=== PATIENT | male | born 1950 | race Caucasian/White ===

== ENCOUNTER → 2016-09-08 | Outpatient (CLI) | payer BC ==
[2016-09-08 08:59] LABS: ALT 61 U/L (21-72); AST 31 U/L (17-59); Alkaline Phosphatase 70 U/L (38-126); Anion Gap 11 mmol/L; Bilirubin, Delta 0.2 mg/dL (0.0-0.2); Blood Urea Nitrogen 13 mg/dL (9-20); Carbon Dioxide 24 mmol/L (22-30); Chloride 106 mmol/L (98-107); Cholesterol 97 mg/dL (<200); HDL Cholesterol 32 mg/dL (40-60); Non-African American GFR(MDRD) >60 (>60 ml/min/1.73 sqM); Potassium 4.7 mmol/L (3.5-5.1); Sodium 141 mmol/L (137-145); Total Bilirubin 0.6 mg/dL (0.2-1.3); Total Protein 7.2 g/dL (6.3-8.2); Triglycerides 81 mg/dL (<150)
[2016-09-08 11:30] LABS: Hemoglobin A1C 7.2 % (4.2-6.1)
== END | disposition home or self-care (01) ==
LOC: LABWHC1 07:42
PROVIDERS: ATTEND Internal Medicine
DX: E78.5 Hyperlipidemia, unspecified (principal); I10 Essential (primary) hypertension; E11.9 Type 2 diabetes mellitus without complications
CPT/HCPCS: 36415; 80051; 80061; 80076; 82565; 83036; 84520

== ENCOUNTER → 2017-06-15 | Outpatient (CLI) | payer BC ==
[2017-06-15 11:02] LABS: ALT 63 U/L (21-72); AST 31 U/L (17-59); Alkaline Phosphatase 68 U/L (38-126); Anion Gap 8 mmol/L; Blood Urea Nitrogen 17 mg/dL (9-20); Calcium 9.2 mg/dL (8.4-10.2); Carbon Dioxide 23 mmol/L (22-30); Chloride 106 mmol/L (98-107); Cholesterol 100 mg/dL (<200); Glucose 166 mg/dL (74-99); HDL Cholesterol 29 mg/dL (40-60); Non-African American GFR(MDRD) >60 (>60 ml/min/1.73 sqM); Potassium 4.6 mmol/L (3.5-5.1); Sodium 137 mmol/L (137-145); Total Bilirubin 0.6 mg/dL (0.2-1.3); Total Protein 6.8 g/dL (6.3-8.2)
[2017-06-15 11:28] LABS: Prostate Specific Antigen 1.02 ng/mL (0.00-4.00)
== END | disposition home or self-care (01) ==
LOC: LABWHC1 07:30
PROVIDERS: ATTEND Internal Medicine
DX: E11.9 Type 2 diabetes mellitus without complications (principal); I10 Essential (primary) hypertension; N40.1 Benign prostatic hyperplasia with lower urinary tract symptoms; E78.5 Hyperlipidemia, unspecified
CPT/HCPCS: 36415; 80053; 80061; 83036; 84153

== ENCOUNTER → 2018-02-17 | Day surgery (SDC) | payer BC ==
[2018-02-11 15:12] VITALS: BMI 38.0
[~2018-02-17] MED LIST: DEXAMETHASONE SOD PHOSPHATE 10 MG/ML 1 ML VIAL IV ONE; GLYCOPYRROLATE 0.2 MG/ML 2 ML VIAL ONE; HEPARIN SODIUM,PORCINE 5,000 UNIT/ML 1 ML VIAL SQ ONE; HYDROcodone/APAP 5-325MG 1 EACH TAB PO ONE; LACTATED RINGERS 1,000 ML IV ONE; LACTATED RINGERS 1,000 ML IV SCH; LIDOCAINE 1% 20 ML VIAL (10MG/ML) FOR IV START INTRADERMA PRN; LIDOCAINE 1% INJ 10MG/ML (20 ML MDV) ONE; MIDAZOLAM 2 MG/2 ML VIAL IV PRN; NALOXONE 0.4 MG/ML 1 ML VIAL IV PRN; NEOSTIGMINE 1 MG/ML 10 ML VIAL ONE; ONDANSETRON 4 MG/2 ML VIAL IVP ONE; PROPOFOL 10 MG/ML 20 ML VIAL IV ONE; ROCURONIUM BROMIDE 10 MG/ML 10 ML VIAL IV ONE; ROPIVACAINE 5 MG/ML 30 ML VIAL MISCELLANE ONE; SCOPOLAMINE 1.5MG/72HR PATCH TRANSDERM ONE; SUCCINYLCHOLINE CHLORIDE 100 MG/5 ML SYR IV ONE; TAMSULOSIN 0.4 MG CAP.ER.24H PO ONE; TAMSULOSIN 0.4 MG CAP.ER.24H PO STA; fentaNYL (PF) 50 MCG/ML 2 ML AMP ONE; traMADol 50 MG TAB PO PRN
[2018-02-17 08:55] LABS: Glucose,Whole Blood 133 mg/dL (75-99)
--- NOTE | 2018-02-17 09:40 | P.ONQ ---
Anesthesiology Proc Note - PNB - Peripheral Nerve Block Performed Bilateral Transversus Abdominis Single Time Out Performed: Yes Procedure Start Time: :14 Procedure Stop Time: :24 Indication: Acute Post-Operative Pain, Requested by physician Sedation Type: Sedate with meaningful contact maintained Preparation: Sterile Prep Position: Supine Needle Size: 50mm (2") Needle Gauge: 21 Technique: Ultrasound Injectate: 0.5% Ropivacaine (see comment for volume) (ropi .5% 30cc) Blood Aspirated: No Pain Paresthesia on Injection Noted: No Resistance on Injection: Normal Events: Uneventful and Well Tolerated
--- NOTE | 2018-02-17 10:44 | P.OP ---
Date of Procedure: 02/17/18 Procedure(s) Performed: PREOPERATIVE DIAGNOSIS: Incarcerated umbilical hernia POSTOPERATIVE DIAGNOSIS: Same PROCEDURE: Umbilical herniorrhaphy with mesh SURGEON: Gordy EBL: Minimal ANESTHESIA: General COMPLICATIONS: None OPERATIVE PROCEDURE: The patient was placed in the operating table in the supine position. A periumbilical incision was made using the scalpel. The subcutaneous tissues were dissected bluntly. The hernia sac was identified. The omentum present within the hernia sac was reduced. The umbilical attachments to the fascia were divided using electrocautery. The hernia sac was excised. The hernia sac was sent to pathology. The pre-peroneal space was dissected circumferentially to make space for our mesh. The 6.4 cm ventral X mesh was placed beneath the fascia and sutured in place using trans-fascial 0 Ethibond sutures. The defect was closed using interrupted [id number] 0 Ethibond sutures. The subcutaneous tissues were reapproximated using inverted 3 -0 Vicryl sutures. The umbilicus was tacked back down to the fascia using a 3- 0 Vicryl suture. The skin was closed using 4-0 Monocryl sutures. Steri-Strips and sterile dressings were then applied. DISPOSITION: Stable to recovery room
[2018-02-17 10:48] VITALS: TEMP 97
[2018-02-17 10:59] LABS: Glucose,Whole Blood 136 mg/dL (75-99)
[2018-02-17] MEDS: HYDROmorphone 0.5 MG/0.5 ML SYRINGE IVP PRN ×2 (11:06→11:20)
[2018-02-17 12:52] VITALS: RESP 18
[2018-02-17 15:33] VITALS: BP 121/76; PULSE 66
== END ==
LOC: OR 08:25
PROVIDERS: ATTEND Surgery
DX: K42.0 Umbilical hernia with obstruction, without gangrene (principal); I10 Essential (primary) hypertension; E11.9 Type 2 diabetes mellitus without complications; Z79.2 Long term (current) use of antibiotics; Z79.84 Long term (current) use of oral hypoglycemic drugs; Z79.899 Other long term (current) drug therapy; Z79.1 Long term (current) use of non-steroidal anti-inflammatories (NSAID); Z79.891 Long term (current) use of opiate analgesic
CPT/HCPCS: 88302; 49587; 64488; C1781; J2250; J1644; J1100; J2710; J0690; J2405; J2001; J3010; J2795; J0330; J2704; J1170

== ENCOUNTER → 2018-05-31 | Outpatient (CLI) | payer BC ==
[2018-05-31 11:27] LABS: Albumin 4.3 g/dL (3.80-4.90); Albumin/Globulin Ratio 1.72 (1.20-2.10); Anion Gap 8.7 mmol/L (4.00-12.00); Bilirubin, Conjugated 0.3 mg/dL (0.20-0.40); Bilirubin,Unconjugated 0.3 mg/dL; Carbon Dioxide 25.3 mmol/L (21.6-31.8); Globulin 2.5 g/dL (2.1-3.7); Potassium 4.9 mmol/L (3.5-5.5); Total Bilirubin 0.6 mg/dL (0.3-1.2); Total Protein 6.8 g/dL (6.2-8.2)
[2018-05-31 14:00] LABS: Hemoglobin A1C 7.6 % (4.0-6.0)
[2018-06-02 08:55] LABS: Hepatitis A Antibody IgM Non-Reactive (Non-Reactive); Hepatitis B Core IgM Non-Reactive (Non-Reactive)
== END | disposition home or self-care (01) ==
LOC: LABWHC1 06:48
PROVIDERS: ATTEND Internal Medicine
DX: E11.9 Type 2 diabetes mellitus without complications (principal); I10 Essential (primary) hypertension; E78.5 Hyperlipidemia, unspecified; R94.5 Abnormal results of liver function studies; Z12.5 Encounter for screening for malignant neoplasm of prostate
CPT/HCPCS: 36415; 80051; 80061; 80074; 80076; 82565; 82947; 83036; 84153; 84520

== ENCOUNTER → 2019-07-05 | Outpatient (CLI) | payer MEDICARE, OTHER ==
[2019-07-05 13:15] LABS: Hemoglobin A1C 6.5 % (4.0-6.0)
[2019-07-05 14:46] LABS: African American GFR (CKD) 89.2 (60.0-200.0); Albumin 4.1 g/dL (3.80-4.90); Albumin/Globulin Ratio 1.58 (1.60-3.17); Calcium 9.1 mg/dL (8.7-10.3); Chol/HDL Ratio 3.04; Globulin 2.6 g/dL (1.6-3.3); Potassium 4.4 mmol/L (3.5-5.5); Total Bilirubin 0.5 mg/dL (0.3-1.2); Total Protein 6.7 g/dL (6.2-8.2)
== END | disposition home or self-care (01) ==
LOC: LABWHC1 07:22
PROVIDERS: ATTEND Internal Medicine
DX: E78.5 Hyperlipidemia, unspecified (principal); E11.9 Type 2 diabetes mellitus without complications; I10 Essential (primary) hypertension; N41.0 Acute prostatitis
CPT/HCPCS: 36415; 80053; 80061; 83036

== ENCOUNTER → 2019-07-22 | Outpatient (CLI) | payer MEDICARE, OTHER ==
--- NOTE | 2019-07-22 09:20 | US ---
EXAMINATION TYPE: US liver DATE OF EXAM: 07/22/2019 COMPARISON: NONE CLINICAL HISTORY: 69-year-old male R94.5 Elevated LFT's. Abnormal labs. TECHNIQUE: Multiple sonographic images of the right upper quadrant are obtained. FINDINGS: EXAM MEASUREMENTS: Liver Length: 17.7 cm- estimated Gallbladder Wall: 0.1 cm Right Kidney: 10.8 x 4.7 x 6.2 cm PLUCK TRIMMER NOTES: Limited due to patient body habitus Pancreas: Body and tail obscured by overlying bowel gas Liver: Very echogenic and attenuating liver. This secondarily limits assessment for focal lesion. Up per limits of normal in size- estimated due to limited penetration of posterior aspect of liver. Gallbladder: wnl Evidence for sonographic Laws's sign: neg CBD: Obscured by overlying bowel gas. Unable to adequately assess. Right Kidney: No hydronephrosis. IMPRESSION: 1. Borderline hepatomegaly (17.7 cm) with severe hepatic steatosis. This secondarily limits assessmen t for focal lesion. 2. The bile duct is obscured and not adequately assessed. 2. No cholelithiasis or acute cholecystitis.
== END | disposition home or self-care (01) ==
LOC: RADUSWWP 07:25
PROVIDERS: ATTEND Internal Medicine
DX: K76.0 Fatty (change of) liver, not elsewhere classified (principal)
CPT/HCPCS: 76705

== ENCOUNTER → 2020-03-09 | Outpatient (CLI) | payer MEDICARE, OTHER ==
[2020-03-09 17:33] LABS: African American GFR (CKD) 79.5 (60.0-200.0); Albumin 4.3 g/dL (3.80-4.90); Albumin/Globulin Ratio 1.39 (1.60-3.17); Anion Gap 10.2 mmol/L (4.00-12.00); BUN/Creat Ratio 15.45 Ratio (12.00-20.00); Calcium 9.5 mg/dL (8.7-10.3); Carbon Dioxide 24.8 mmol/L (21.6-31.8); Chol/HDL Ratio 3.66; Globulin 3.1 g/dL (1.6-3.3); LDL Cholesterol,Calculated 51.6 mg/dL (0.0-131.0); Non-African American GFR(CKD) 68.6 (60.0-200.0); Potassium 4.5 mmol/L (3.5-5.5); Total Bilirubin 0.6 mg/dL (0.3-1.2); Total Protein 7.4 g/dL (6.2-8.2); VLDL Calculation 25.4 mg/dL (5.00-40.00)
[2020-03-09 18:25] LABS: Hemoglobin A1C 7.1 % (4.0-6.0)
== END | disposition home or self-care (01) ==
LOC: LABWHC1 07:32
PROVIDERS: ATTEND Internal Medicine
DX: I10 Essential (primary) hypertension (principal); N40.0 Benign prostatic hyperplasia without lower urinary tract symptoms; E11.9 Type 2 diabetes mellitus without complications; E78.5 Hyperlipidemia, unspecified
CPT/HCPCS: 36415; 80053; 80061; 83036

== ENCOUNTER → 2020-12-25 | Outpatient (CLI) | payer MEDICARE, OTHER ==
[2020-12-25 12:37] LABS: African American GFR (CKD) 71.1 (60.0-200.0); Albumin 4.1 g/dL (3.80-4.90); Albumin/Globulin Ratio 1.37 (1.60-3.17); Anion Gap 9.2 mmol/L (4.00-12.00); Bilirubin, Conjugated 0.2 mg/dL (0.20-0.40); Bilirubin,Unconjugated 0.3 mg/dL; Carbon Dioxide 24.8 mmol/L (21.6-31.8); Chol/HDL Ratio 3.33; LDL Cholesterol,Calculated 40.6 mg/dL (0.0-131.0); Non-African American GFR(CKD) 61.3 (60.0-200.0); Potassium 4.6 mmol/L (3.5-5.5); Total Bilirubin 0.5 mg/dL (0.2-1.2); Total Protein 7.1 g/dL (6.2-8.2); VLDL Calculation 22.4 mg/dL (5.00-40.00)
== END | disposition home or self-care (01) ==
LOC: LABWHC1 07:20
PROVIDERS: ATTEND Internal Medicine
DX: E78.5 Hyperlipidemia, unspecified (principal); E11.9 Type 2 diabetes mellitus without complications; I10 Essential (primary) hypertension
CPT/HCPCS: 36415; 80051; 80061; 80076; 82565; 83036; 84443; 84520

== ENCOUNTER 2022-01-03 14:13 | Emergency (ER) | payer MEDICARE, OTHER ==
[2022-01-03 14:18] VITALS: TEMP 97.4
--- NOTE | 2022-01-03 15:21 | ED ---
Recheck HPI - General Source: patient Mode of arrival: ambulatory Limitations: no limitations <Karan Sweet - Last Filed: 01/04/22 00:14> <Skinny Syed - Last Filed: 01/07/22 00:32> - General Chief Complaint: Recheck/Abnormal Lab/Rx Stated Complaint: Abnormal Labs Time Seen by Provider: 01/03/22 15:01 - History of Present Illness Initial Comments: Patient is a 8-year-old male presenting with chief complaint of nausea and vomiting. History of diabetes and hypertension. Patient has had these symptoms for approximately one month, he was seen by Dr. Israel 2 weeks ago, who noted elevated liver enzymes. Patient states that he was not able to get an outpatient ultrasound and computed tomography scan until the end of the month, and was told to report to the ER. Patient states he has lost 28 pounds in one month. Patient states he has not been eating and drinking very much due to his symptoms. He denies any abdominal pain. Surgical history includes umbilical hernia repair. Patient has been having regular bowel movements, without blood. Denies any hematemesis. Denies any chest pain, shortness of breath, fever, chills, dysuria, hematuria, urgency, frequency, diarrhea, cough. (Karan Sweet) - Related Data Home Medications Medication Instructions Recorded Confirmed Silodosin [Rapaflo] 8 mg PO HS 02/11/18 01/03/22 Simvastatin [Zocor] 10 mg PO HS 02/11/18 01/03/22 Allergies Allergy/AdvReac Type Severity Reaction Status Date / Time No Known Allergies Allergy Verified 01/03/22 15:15 Review of Systems ROS Other: All systems not noted in ROS Statement are negative. <Karan Sweet - Last Filed: 01/04/22 00:14> ROS Other: All systems not noted in ROS Statement are negative. <Skinny Syed - Last Filed: 01/07/22 00:32> ROS Statement: Those systems with pertinent positive or pertinent negative responses have been documented in the HPI. Past Medical History Past Medical History: Diabetes Mellitus, Hypertension, Prostate Disorder Additional Past Medical History / Comment(s): BPH, NERVE PAIN IN LOWER BACK., HX OF RETINA DETACHMENT ELLEN. History of Any Multi-Drug Resistant Organisms: None Reported Past Surgical History: Heart Catheterization Additional Past Surgical History / Comment(s): RIGHT RETINA BUCKLE(2008), LEFT EYE SURGERY X4. HEART CATH (2010 @ [facility] Past Anesthesia/Blood Transfusion Reactions: No Reported Reaction Past Psychological History: No Psychological Hx Reported Smoking Status: Former smoker Past Alcohol Use History: None Reported Past Drug Use History: None Reported - Past Family History Father Family Medical History: Cancer Additional Family Medical History / Comment(s): BLADDER CANCER Brother(s) Family Medical History: Cancer Additional Family Medical History / Comment(s): THROAT CANCER <Karan Sweet - Last Filed: 01/04/22 00:14> General Exam Limitations: no limitations General appearance: alert, in no apparent distress Head exam: Present: atraumatic, normocephalic, normal inspection Eye exam: Present: EOMI, scleral icterus Neck exam: Present: normal inspection Respiratory exam: Present: normal lung sounds bilaterally. Absent: respiratory distress, wheezes, rales, rhonchi, stridor Cardiovascular Exam: Present: normal rhythm, tachycardia, normal heart sounds. Absent: systolic murmur, diastolic murmur, rubs, gallop, clicks GI/Abdominal exam: Present: soft, distended, normal bowel sounds. Absent: tenderness, guarding, rebound, rigid Extremities exam: Present: normal inspection. Absent: pedal edema Neurological exam: Present: alert, oriented X3, CN II-XII intact Psychiatric exam: Present: normal affect, normal mood Skin exam: Present: warm, dry, intact, other (Jaundiced). Absent: rash <Karan Sweet - Last Filed: 01/04/22 00:14> Course Vital Signs 01/03/22 01/03/22 14:15 23:24 Temperature 97.4 F L Pulse Rate 102 H 97 Respiratory 19 16 Rate Blood Pressure 122/81 137/79 O2 Sat by Pulse 94 L 95 Oximetry Medical Decision Making - Lab Data Result diagrams: 01/03/22 14:40 01/03/22 14:40 <Karan Sweet - Last Filed: 01/04/22 00:14> - Lab Data Result diagrams: 01/03/22 14:40 01/03/22 14:40 <Skinny Syed - Last Filed: 01/07/22 00:32> - Medical Decision Making Patient is a 71-year-old male presenting with chief complaint of nausea and vomiting. Patient was prompted by his PCP Dr. Israel to report to the ER for further testing as in the office 2 weeks ago his LFTs were elevated. On examination abdomen is distended, nontender. Patient does not have a white count. Hypoglycemic with glucose of 38, he was given D50 and juice, recheck shows glucose of 91. Lactic acid of 11, patient states that at home he has not been eating or drinking much due to his nausea and vomiting. Total bilirubin of 8.0, bilirubin fractions show dominant conjugated bilirubin. AST is 232. ALT is 128. Alkaline phosphatase is 249. CT of the abdomen and pelvis shows an enlarged liver with a nodular contour to suggest cirrhosis, hepatic steatosis, cholelithiasis, and enlargement of the prostate and spleen. Ultrasound shows many masses seen throughout the liver concerning for neoplastic process that are not definitively seen on noncontrast CT. Given the patient's 28 lb, weight loss within the last month, this is further concerning for malignancy. Also remarkable for cholelithiasis with biliary sludge. Patient likely has some obstructive process, which may be malignant in nature, and requires GI services. I explained to the patient that we do not have the means to care for him here, as we do not currently have GI coverage. I explained to the patient his findings and the seriousness of his condition, which requires immediate further workup and treatment plan, and I am recommending transfer to another ER tonight. I explained to him that any delay in care could result in serious injury or . Patient stated that while he understands the situation, he is refusing to be transferred today as he needs to make arrangements for his 's care. I spoke with the patient again with my attending Dr. Syed, urging him to be transferred to another facility and c onfirming that the patient understood that not seeking additional care at this time may result in . Patient is of sound mind and body and states that he will not accept transfer at this time. I provided patient with a copy of his labs and radiology readings, as well as a disc of his imaging obtained today. I instructed him to report to an ER with GI services, such as [facility], tomorrow morning with the materials provided today. He was informed that if it was not possible for him to report to another ER, he may report here and will be transferred. Patient conveyed verbal understanding and agreed to the plan. I discussed this case with my attending Dr. Syed. (Karan Sweet) I spoke with the mid-level provider regarding this patient. The plan was for transfer for gastroenterology consultation at another facility, specifically [facility]. Patient appears to have cirrhosis, numbness concerned for possible choledocholithiasis dehydration. There are multiple hepatic masses seen on ultrasound concerned for possible neoplastic process. There is concerning for undiagnosed cancer and the patient. Patient's laboratory studies were initially remarkable for hypoglycemia which recovered following sugar administration. Lactic acid is severely elevated to 11.0 patient received a dose of Zosyn. Patient shows obstructive pathology in the hepatobiliary tree with alk phos of 249 and elevated LFTs. Bilirubin is elevated to 8.0. Patient has an OBI. Nursing staff as well as the mid-level provider spoke with the patient regarding transfer but he refuses. He states he cannot be admitted to the hospital or transferred this evening as he is no one to care for his . States there is no one he can call. States potentially can find someone to take care of her and help with her care tomorrow. States his symptoms have been ongoing for one month without any change. He believes he can wait. I was notified at this time and I spoke patient personally. Patient's vital signs remained stable. Repeat sugar following multiple hours was in the 80s which is typical for the patient. Patient is of sound mind and body. He would like to follow up tomorrow.The patient was apprised of the potential risks of leaving the hospital AGAINST MEDICAL ADVICE, including serious complications, permanent disability, and . At the time of my interview the patient, the patient was alert, oriented, and capable. Patient signed AMA form, which was witnessed and signed by nursing staff, and placed in patient's chart. I urged the patient to return to the hospital as soon as possible to complete evaluation and treatment. The patient repeated the potential diagnosis as well as concerned for potential to me. He expresses understanding and is willing to sign the AMA forms. We will provide the patient with a disc of his CT imaging as well as copies of his laboratory studies. I once again urged the patient to be transferred, which he refuses. I urged the patient to follow up as soon as possible, and he can return here and be subsequently transfered if that is easiest for him. He expressed understanding and was in agreement with the plan. (Skinny Syed) - Lab Data Lab Results 01/03/22 01/03/22 01/03/22 Range/Units 14:40 14:40 15:07 WBC 10.1 (3.8-10.6) k/uL RBC 4.63 (4.30-5.90) m/uL Hgb 14.2 (13.0-17.5) gm/dL Hct 44.3 (39.0-53.0) % MCV 95.7 (80.0-100.0) fL MCH 30.7 (25.0-35.0) pg MCHC 32.1 (31.0-37.0) g/dL RDW 15.1 (11.5-15.5) % Plt Count 248 (150-450) k/uL MPV 8.3 PT 14.4 H (9.0-12.0) sec INR 1.4 H (<1.2) APTT 26.7 (22.0-30.0) sec Sodium 136 L (137-145) mmol/L Potassium 4.9 (3.5-5.1) mmol/L Chloride 98 (98-107) mmol/L Carbon Dioxide 17 L (22-30) mmol/L Anion Gap 21 mmol/L BUN 23 H (9-20) mg/dL Creatinine 1.61 H (0.66-1.25) mg/dL Est GFR (CKD-EPI)AfAm 50 (>60 ml/min/1.73 sqM) Est GFR (CKD-EPI)NonAf 43 (>60 ml/min/1.73 sqM) Glucose 38 L* (74-99) mg/dL POC Glucose (mg/dL) (70-110) mg/dL POC Glu Roll Scale Man ID Lactic Ac Sepsis Rflx Plasma Lactic Acid Shan (0.7-2.0) mmol/L Calcium 10.5 H (8.4-10.2) mg/dL Total Bilirubin 8.0 H (0.2-1.3) mg/dL Conjugated Bilirubin (0.0-0.3) mg/dL Unconjugated Bilirubin (0.0-1.1) mg/dL Delta Bilirubin (0.0-0.2) mg/dL AST 232 H (17-59) U/L ALT 128 H (4-49) U/L Alkaline Phosphatase 249 H (38-126) U/L Troponin I (0.000-0.034) ng/mL Total Protein 7.2 (6.3-8.2) g/dL Albumin 3.4 L (3.5-5.0) g/dL Amylase 78 (30-110) U/L Lipase 195 (23-300) U/L Hepatitis A IgM Ab (Nonreactive) Hep Bs Antigen (Nonreactive) Hep B Core IgM Ab (Nonreactive) Hep C IgG Ab (Nonreactive) 01/03/22 01/03/22 01/03/22 Range/Units 15:07 15:07 16:29 WBC (3.8-10.6) k/uL RBC (4.30-5.90) m/uL Hgb (13.0-17.5) gm/dL Hct (39.0-53.0) % MCV (80.0-100.0) fL MCH (25.0-35.0) pg MCHC (31.0-37.0) g/dL RDW (11.5-15.5) % Plt Count (150-450) k/uL MPV PT (9.0-12.0) sec INR (<1.2) APTT (22.0-30.0) sec Sodium (137-145) mmol/L Potassium (3.5-5.1) mmol/L Chloride (98-107) mmol/L Carbon Dioxide (22-30) mmol/L Anion Gap mmol/L BUN (9-20) mg/dL Creatinine (0.66-1.25) mg/dL Est GFR (CKD-EPI)AfAm (>60 ml/min/1.73 sqM) Est GFR (CKD-EPI)NonAf (>60 ml/min/1.73 sqM) Glucose (74-99) mg/dL POC Glucose (mg/dL) (70-110) mg/dL POC Glu Roll Scale Man ID Lactic Ac Sepsis Rflx Y Plasma Lactic Acid Shan 11.0 H* (0.7-2.0) mmol/L Calcium (8.4-10.2) mg/dL Total Bilirubin (0.2-1.3) mg/dL Conjugated Bilirubin (0.0-0.3) mg/dL Unconjugated Bilirubin (0.0-1.1) mg/dL Delta Bilirubin (0.0-0.2) mg/dL AST (17-59) U/L ALT (4-49) U/L Alkaline Phosphatase (38-126) U/L Troponin I <0.012 (0.000-0.034) ng/mL Total Protein (6.3-8.2) g/dL Albumin (3.5-5.0) g/dL Amylase (30-110) U/L Lipase (23-300) U/L Hepatitis A IgM Ab (Nonreactive) Hep Bs Antigen (Nonreactive) Hep B Core IgM Ab (Nonreactive) Hep C IgG Ab (Nonreactive) 01/03/22 01/03/22 01/03/22 Range/Units 16:31 17:03 17:30 WBC (3.8-10.6) k/uL RBC (4.30-5.90) m/uL Hgb (13.0-17.5) gm/dL Hct (39.0-53.0) % MCV (80.0-100.0) fL MCH (25.0-35.0) pg MCHC (31.0-37.0) g/dL RDW (11.5-15.5) % Plt Count (150-450) k/uL MPV PT (9.0-12.0) sec INR (<1.2) APTT (22.0-30.0) sec Sodium (137-145) mmol/L Potassium (3.5-5.1) mmol/L Chloride (98-107) mmol/L Carbon Dioxide (22-30) mmol/L Anion Gap mmol/L BUN (9-20) mg/dL Creatinine (0.66-1.25) mg/dL Est GFR (CKD-EPI)AfAm (>60 ml/min/1.73 sqM) Est GFR (CKD-EPI)NonAf (>60 ml/min/1.73 sqM) Glucose (74-99) mg/dL POC Glucose (mg/dL) 91 (70-110) mg/dL POC Glu Roll Scale Man ID Shanon Manzo Lactic Ac Sepsis Rflx Plasma Lactic Acid Shan (0.7-2.0) mmol/L Calcium (8.4-10.2) mg/dL Total Bilirubin 7.5 H (0.2-1.3) mg/dL Conjugated Bilirubin 2.8 H (0.0-0.3) mg/dL Unconjugated Bilirubin 2.1 H (0.0-1.1) mg/dL Delta Bilirubin 2.6 H (0.0-0.2) mg/dL AST (17-59) U/L ALT (4-49) U/L Alkaline Phosphatase (38-126) U/L Troponin I (0.000-0.034) ng/mL Total Protein (6.3-8.2) g/dL Albumin (3.5-5.0) g/dL Amylase (30-110) U/L Lipase (23-300) U/L Hepatitis A IgM Ab Nonreactive (Nonreactive) Hep Bs Antigen Nonreactive (Nonreactive) Hep B Core IgM Ab Nonreactive (Nonreactive) Hep C IgG Ab Nonreactive (Nonreactive) 01/03/22 Range/Units 22:00 WBC (3.8-10.6) k/uL RBC (4.30-5.90) m/uL Hgb (13.0-17.5) gm/dL Hct (39.0-53.0) % MCV (80.0-100.0) fL MCH (25.0-35.0) pg MCHC (31.0-37.0) g/dL RDW (11.5-15.5) % Plt Count (150-450) k/uL MPV PT (9.0-12.0) sec INR (<1.2) APTT (22.0-30.0) sec Sodium (137-145) mmol/L Potassium (3.5-5.1) mmol/L Chloride (98-107) mmol/L Carbon Dioxide (22-30) mmol/L Anion Gap mmol/L BUN (9-20) mg/dL Creatinine (0.66-1.25) mg/dL Est GFR (CKD-EPI)AfAm (>60 ml/min/1.73 sqM) Est GFR (CKD-EPI)NonAf (>60 ml/min/1.73 sqM) Glucose (74-99) mg/dL POC Glucose (mg/dL) 83 (70-110) mg/dL POC Glu Roll Scale Man ID Whiting, Roland Lactic Ac Sepsis Rflx Plasma Lactic Acid Shan (0.7-2.0) mmol/L Calcium (8.4-10.2) mg/dL Total Bilirubin (0.2-1.3) mg/dL Conjugated Bilirubin (0.0-0.3) mg/dL Unconjugated Bilirubin (0.0-1.1) mg/dL Delta Bilirubin (0.0-0.2) mg/dL AST (17-59) U/L ALT (4-49) U/L Alkaline Phosphatase (38-126) U/L Troponin I (0.000-0.034) ng/mL Total Protein (6.3-8.2) g/dL Albumin (3.5-5.0) g/dL Amylase (30-110) U/L Lipase (23-300) U/L Hepatitis A IgM Ab (Nonreactive) Hep Bs Antigen (Nonreactive) Hep B Core IgM Ab (Nonreactive) Hep C IgG Ab (Nonreactive) Disposition Is patient prescribed a controlled substance at d/c from ED?: No Time of Disposition: 22:12 <Karan Sweet - Last Filed: 01/04/22 00:14> <Skinny Syed - Last Filed: 01/07/22 00:32> Clinical Impression: Left against medical advice, Cirrhosis, Liver masses, Lactic acidosis, OBI (acute kidney injury), Dehydration, Hyperbilirubinemia Disposition: Left Against Medical Advice Condition: Poor Additional Instructions: You have chosen to leave AGAINST MEDICAL ADVICE, and you understand that this may result in or serious injury at any point. You need to follow up as soon as possible with a hospital with a GI doctor, we were going to send you to [facility]. Bring your printed off lab work and imaging studies with you to the ER. If you are unable to follow up at a different hospital, you may return here and we will transfer you. Today your labs and imaging are suggesting a critical condition of the liver and gallbladder, there are masses and scarring seen to the liver, and you may have a critical infection of the gallbladder, all of which may result in . It is of utmost importance that you follow up and receive further care and studies regarding your condition. Referrals: Jackson Israel MD [Primary Care Provider] - 1-2 days
[2022-01-03 16:05] LABS: HCT 44.3 % (39.0-53.0); HGB 14.2 gm/dL (13.0-17.5); MCH 30.7 pg (25.0-35.0); MCHC 32.1 g/dL (31.0-37.0); MCV 95.7 fL (80.0-100.0); Mean Platelet Volume 8.3; Platelet Count 248 k/uL (150-450); RBC 4.63 m/uL (4.30-5.90); RDW 15.1 % (11.5-15.5); WBC 10.1 k/uL (3.8-10.6)
[2022-01-03 16:14] LABS: INR 1.4 (<1.2); Partial Thromboplastin Time 26.7 sec (22.0-30.0); Prothrombin Time 14.4 sec (9.0-12.0)
[2022-01-03 16:18] LABS: Albumin 3.4 g/dL (3.5-5.0); Calcium 10.5 mg/dL (8.4-10.2); Potassium 4.9 mmol/L (3.5-5.1); Total Protein 7.2 g/dL (6.3-8.2)
[2022-01-03] MEDS ORDERED: SODIUM CHLORIDE 0.9% 2,000 ML IV ONE (16:30)
[2022-01-03] MEDS ORDERED: DEXTROSE 50% SYRINGE 50 ML IVP STA (16:34)
[2022-01-03 17:25] LABS: Bilirubin, Conjugated 2.8 mg/dL (0.0-0.3); Bilirubin, Delta 2.6 mg/dL (0.0-0.2); Bilirubin,Unconjugated 2.1 mg/dL (0.0-1.1); Total Bilirubin 7.5 mg/dL (0.2-1.3)
[2022-01-03 17:32] LABS: Glucose,Whole Blood 91 mg/dL (70-110)
[2022-01-03] MEDS ORDERED: SODIUM CHLORIDE 0.9% 1,000 ML IV SCH (18:30)
--- NOTE | 2022-01-03 18:33 | CT ---
EXAMINATION TYPE: CT abdomen pelvis wo con CT DLP: 1399.2 mGycm, Automated exposure control for dose reduction was used. DATE OF EXAM: 01/03/2022 5:29 PM COMPARISON: None CLINICAL INDICATION:Male, 71 years old with history of elevated LFTs, vomiting, distention; elevated liver enzymes and abdominal distention TECHNIQUE: Standard CT of the abdomen and pelvis without IV or oral contrast. Lack of IV or oral co ntrast limits evaluation of solid and hollow organ viscera. Coronal and sagittal reformats were perfo rmed. FINDINGS: LOWER CHEST: Few scattered paraseptal emphysema cysts are noted along with atelectasis in the mid jeannette gs. ABDOMEN LIVER: Diffuse low-attenuation parenchyma. There is nodular contour. The liver is enlarged in size. GALLBLADDER AND BILE DUCTS: Layering increased densities within the lumen consistent with gallstones are present. PANCREAS: Unremarkable. SPLEEN: Spleen is enlarged in size measuring up to 14.3 cm. ADRENAL GLANDS: Unremarkable. KIDNEYS AND URETERS: No evidence of hydronephrosis or renal calculus. The ureters are unremarkable. Right renal cyst measuring 19 mm PELVIS BLADDER: Unremarkable REPRODUCTIVE: Prostate is enlarged in size measuring 6.1 cm in transverse dimension. ABDOMEN & PELVIS STOMACH AND BOWEL: Scattered diverticula are noted throughout the colon. No evidence of bowel obstruc tion. PERITONEUM: No evidence of pneumoperitoneum or free fluid. VASCULATURE: No evidence of aortic aneurysm. Mild multilevel disc degeneration changes of the spine. MUSCULOSKELETAL: No acute osseous abnormalities. LYMPH NODES: No gross evidence for lymphadenopathy. SOFT TISSUE/ABDOMINAL WALL: Unremarkable IMPRESSION: 1. Enlarged liver with a Nodular contour to liver suggestive of cirrhosis. 2. Hepatic steatosis. 3. Prostatomegaly. 4. Cholelithiasis. 5. Splenomegaly.
[2022-01-03] MEDS ORDERED: PIPERACILLIN-TAZOBACTAM 3.375 GM in SODIUM CHLORIDE 0.9% 100 ML IVPB STA (19:31)
--- NOTE | 2022-01-03 21:22 | US ---
EXAMINATION TYPE: US abdomen limited DATE OF EXAM: 01/03/2022 COMPARISON: CT abdomen pelvis 01/03/2021 CLINICAL HISTORY: elevated bilirubin, cholelithiasis, cirrhosis. Pain nausea vomiting jaundice lost 2 8lbs in a month can't keep food down. EXAM MEASUREMENTS: Liver Length: 23.4 cm Gallbladder Wall: .5 cm CBD: .9 cm Right Kidney: 10.7 x 4.6 x 3.9 cm Pancreas: Obscured by bowel gas Liver: Enlarged with multiple masses visualized throughout liver. Gallbladder: Stones and sludge visualized wall is thickened. Evidence for sonographic Laws's sign: no CBD: Dilated Right Kidney: No hydronephrosis or masses seen IMPRESSION: 1. Innumerable hepatic hypoechoic masses are seen throughout the liver concerning for neoplastic pro cess. These are not definitively seen on noncontrast CT. Findings are concerning for malignancy given patient weight loss. Correlate with serum alpha-fetoprotein for hepatocellular carcinoma. Further ev aluation of liver with MRI with IV contrast liver mass protocol is recommended. 2. Cholelithiasis with biliary sludge.
[2022-01-03 22:01] LABS: Glucose,Whole Blood 83 mg/dL (70-110)
[2022-01-03] MEDS ORDERED: ONDANSETRON 4 MG ODT STARTER PACK 2 TAB BTL PO STA (22:53)
[2022-01-03 23:25] VITALS: BP 137/79; PULSE 97; RESP 16
[2022-01-04 03:37] LABS: Hepatitis A Antibody IgM Nonreactive (Nonreactive); Hepatitis B Core IgM Nonreactive (Nonreactive); Hepatitis B Surface Antigen Nonreactive (Nonreactive); Hepatitis C IgG Antibody Nonreactive (Nonreactive)
== END 2022-01-03 23:25 | disposition left against medical advice (07) ==
LOC: EC 14:13
DX: N17.9 Acute kidney failure, unspecified (principal); E86.0 Dehydration; E80.6 Other disorders of bilirubin metabolism; K74.60 Unspecified cirrhosis of liver; E11.10 Type 2 diabetes mellitus with ketoacidosis without coma; R16.0 Hepatomegaly, not elsewhere classified; I10 Essential (primary) hypertension; Z87.891 Personal history of nicotine dependence
CPT/HCPCS: 36415; 93005; 80053; 80074; 82150; 82248; 83605; 83690; 84484; 85027; 85610; 85730; 76705; 74176; 99284; 96365; 96361 ×2; J2543